=== PATIENT | male | born 1970 | race Caucasian/White ===

== ENCOUNTER 2017-06-19 15:18 | Inpatient (IN) | payer OTHER ==
[~2017-06-19] VITALS: Ht 172.7 cm; Wt 78.3 kg
[2017-06-19 19:35] VITALS: BP 144/91; PULSE 95; RESP 16; TEMP 98.1; O2SAT 98
[2017-06-19] MEDS ORDERED: MAGNESIUM HYDROXIDE SUSP 30 ML CUP PO PRN (21:15)
[2017-06-19] MEDS ORDERED: LORazepam 2 MG/ML VIAL IM PRN (21:15)
[2017-06-19] MEDS ORDERED: LORazepam 1 MG TAB PO PRN (21:15)
[2017-06-19] MEDS ORDERED: ACETAMINOPHEN 325 MG TAB PO PRN (21:15)
[2017-06-19] MEDS ORDERED: ALUMINUM/MAGNESIUM/SIMETH 30 ML CUP PO PRN (21:15)
[2017-06-19] MEDS ORDERED: FLUO1TAB3 PO (22:42)
[2017-06-19] MEDS ORDERED: BUSP5TAB PO (22:42)
[2017-06-20 05:43] VITALS: BP 136/90; PULSE 86; RESP 17; TEMP 98.2; O2SAT 97
[2017-06-20] MEDS: NICOTINE 21 MG/24 HR PATCH T-DERMAL SCH (09:00)
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
[2017-06-20] MEDS ORDERED: FLUMAZENIL 0.5 MG/5 ML VIAL IV PUSH PRN (11:15)
[2017-06-20] MEDS ORDERED: LORazepam 2 MG/ML VIAL IV PUSH PRN ×4 (11:15)
[2017-06-20] MEDS ORDERED: LORazepam 2 MG TAB PO PRN (11:15)
[2017-06-20] MEDS: THIAMINE HCL 100 MG TAB PO SCH (12:26)
[2017-06-20] MEDS: FOLIC ACID 1 MG TAB PO SCH (12:26)
[2017-06-20 15:35] VITALS: BP 142/87
[2017-06-20] MEDS: LORazepam 1 MG TAB PO PRN (15:35)
[2017-06-20 16:16] VITALS: BP 142/87; PULSE 98; RESP 18; TEMP 98.2; O2SAT 96
[2017-06-20] MEDS: REMOVE OLD NICOTINE PATCH T-DERMAL SCH (21:00)
[2017-06-20] MEDS ORDERED: QUEtiapine FUMARATE 25 MG TAB PO SCH (21:00)
--- NOTE | 2017-06-20 21:36 | EKG ---
Date Performed: 06/20/2017 Time Performed: 17:11:16 PTAGE: 46 years EKG: SINUS TACHYCARDIA INCOMPLETE RIGHT BUNDLE BRANCH BLOCK ABNORMAL RHYTHM ECG NO PREVIOUS TRACING DOCTOR: Serina Pandey Interpretating Date/Time 06/20/2017 21:35:24
[2017-06-21 05:35] VITALS: BP 133/85; PULSE 98; RESP 18; TEMP 97.6; O2SAT 96
[2017-06-21 06:10] VITALS: BP 133/85; PULSE 98; RESP 18; TEMP 97.6; O2SAT 96
[2017-06-21] MEDS: THIAMINE HCL 100 MG TAB PO SCH (08:42)
[2017-06-21] MEDS: FOLIC ACID 1 MG TAB PO SCH (08:42)
[2017-06-21] MEDS: NICOTINE 21 MG/24 HR PATCH T-DERMAL SCH (08:42)
[2017-06-21 11:03] LABS: BICARBONATE 26.1 MEQ/L (21.0-32.0); BLOOD UREA NITROGEN 13 MG/DL (7-18); CALCIUM 8.5 MG/DL (8.5-10.1); CHLORIDE 102 MEQ/L (98-107); CHOLESTEROL 146 MG/DL (120-200); CREATININE 1.08 MG/DL (0.60-1.30); GLOMERULAR FILTRATION RATE 74 ML/MIN (>89); GLUCOSE,RANDOM 224 MG/DL (74-106); SODIUM (NA) 140 MEQ/L (136-145)
[2017-06-21 11:13] LABS: CHOLESTEROL/ HDL RATIO 1.88 RATIO; HDL CHOLESTEROL 77.6 MG/DL (40.0-60.0); LDL CHOLESTEROL 53 MG/DL (0-99); TRIGLYCERIDES 78 MG/DL (42-150)
--- NOTE | 2017-06-21 12:02 | HHI.PYPN ---
Subjective Chief Complaint: Depression Remarks Patient seen and examined with nurse. Chart reviewed. Patient has received 1 mg of Ativan in last 24 hours. Case discussed with nursing staff. On my examination today, dramatic, cluster B personality traits more evident as they had been with nursing staff yesterday. Patient endorses ongoing low mood. Ongoing anxiety, particularly surrounding socializing. Slept well overnight with Seroquel. Denies active suicidal ideation. Denies side effects from medications. No physical complaints. Agreeable to titration of Seroquel. Review of Systems Except as stated in HPI: all other systems reviewed are Neg Mental Status Examination Appearance: Appropriate Consciousness: Alert Orientation: x4 Motor Activity: Other (mild resting tremor, no diaphoresis, no mydriasis, no tongue fasciculations. No other motoric abnormalities noted.) Speech: Unremarkable Language: Adequate Fund of Knowledge: Adequate Attention and Concentration: Adequate Memory: Unremarkable Mood: Other (depressed) Affect: Other (blunted, tearful at times) Thought Process & Associations: Intact Thought Content: Appropriate Hallucination Type: None Delusion Type: None Suicidal Ideation: No Suicidal Plan: No Suicidal Intention: No Homicidal Ideation: No Homicidal Plan: No Homicidal Intention: No Insight: Fair Judgment: Impulsive Results Labs Test 06/21/17 08:50 Blood Urea Nitrogen 13 MG/DL Creatinine 1.08 MG/DL Random Glucose 224 MG/DL Calcium Level 8.5 MG/DL Sodium Level 140 MEQ/L Potassium Level 3.6 MEQ/L Chloride Level 102 MEQ/L Carbon Dioxide Level 26.1 MEQ/L Anion Gap 12 MEQ/L Estimat Glomerular Filtration Rate 74 ML/MIN Triglycerides Level 78 MG/DL Cholesterol Level 146 MG/DL LDL Cholesterol 53 MG/DL HDL Cholesterol 77.6 MG/DL Cholesterol/HDL Ratio 1.88 RATIO Thyroid Stimulating Hormone 3rd Gen 0.886 uIU/ML Labs reviewed. TSH within normal limits. Hyperglycemia noted inpatient without known history of diabetes. Hemoglobin A1c presently pending. EKG reviewed. QTC within normal limits. Vitals/IOs Vital Signs Date Time Temp Pulse Resp B/P (MAP) Pulse Ox O2 Delivery O2 Flow Rate FiO2 06/21/17 06:10 97.6 98 18 133/85 (101) 96 Assessment & Plan Problem List: (1) Severe depressed bipolar II disorder without psychotic features ICD Codes: F31.81 - Bipolar II disorder (2) Alcohol dependence ICD Codes: F10.20 - Alcohol dependence, uncomplicated Assessment & Plan Titrate Seroquel to 100 mg at bedtime for mood stabilization. Continue CIWA scale and Ativan for the management of any withdrawal. Follow-up hemoglobin A1c and check fasting morning Accu-Cheks. Continue to monitor on the inpatient unit. Continue other medications and care as ordered. Support provided. Justification for Cont. Inpt. Med changes. Risk for decompensation in less restrictive environment. Discharge Planning Pending psychiatric stabilization. ELOS unchanged. Request HC Surrog/Guard Advoc?: No Problem Qualifiers (1) Alcohol dependence: Qualified Codes: F10.20 - Alcohol dependence, uncomplicated Kyle Negro MD Jun 21, 2017 12:02
[2017-06-21] MEDS: cloNIDine HCL 0.1 MG TAB PO PRN (17:23)
[2017-06-21 18:10] VITALS: BP 152/102; PULSE 101; RESP 20; TEMP 98.6; O2SAT 98
[2017-06-21 18:48] VITALS: BP 130/90
[2017-06-21] MEDS: LORazepam 1 MG TAB PO PRN (20:26)
[2017-06-21] MEDS: REMOVE OLD NICOTINE PATCH T-DERMAL SCH (20:27)
[2017-06-21] MEDS ORDERED: QUEtiapine FUMARATE 25 MG TAB PO SCH (21:00)
[2017-06-22 05:25] VITALS: BP 130/77; PULSE 80; RESP 18; TEMP 97.6; O2SAT 99
[2017-06-22] MEDS: NICOTINE 21 MG/24 HR PATCH T-DERMAL SCH (08:43)
[2017-06-22] MEDS: FOLIC ACID 1 MG TAB PO SCH (08:43)
[2017-06-22] MEDS: THIAMINE HCL 100 MG TAB PO SCH (08:43)
--- NOTE | 2017-06-22 11:27 | HHI.PYPN ---
Subjective Chief Complaint: Depression Remarks Patient seen and examined with nurse. Chart reviewed. Case discussed with nursing staff. No behavioral issues noted. On my examination today, the patient feels like his medications are starting to work. Mood is slowly improving. Sleep somewhat difficult last night. Denies suicidal or homicidal ideation. Remains a little anxious in social situations. Cluster B personality traits persist. Denies side effects from medications. No physical complaints. Agreeable to further titration of Seroquel. Review of Systems Except as stated in HPI: all other systems reviewed are Neg Mental Status Examination Appearance: Appropriate Consciousness: Alert Orientation: x4 Motor Activity: Other (no motor abnormalities noted. No withdrawal signs noted.) Speech: Unremarkable Language: Adequate Fund of Knowledge: Adequate Attention and Concentration: Adequate Memory: Unremarkable Mood: Other (improving) Affect: Other (fairly full and reactive) Thought Process & Associations: Intact Thought Content: Appropriate Hallucination Type: None Delusion Type: None Suicidal Ideation: No Suicidal Plan: No Suicidal Intention: No Homicidal Ideation: No Homicidal Plan: No Homicidal Intention: No Insight: Adequate Judgment: Adequate Results Labs Labs reviewed. No new labs. Vitals/IOs Vital Signs Date Time Temp Pulse Resp B/P (MAP) Pulse Ox O2 Delivery O2 Flow Rate FiO2 06/22/17 05:25 97.6 80 18 130/77 (94) 99 Assessment & Plan Problem List: (1) Severe depressed bipolar II disorder without psychotic features ICD Codes: F31.81 - Bipolar II disorder (2) Alcohol dependence ICD Codes: F10.20 - Alcohol dependence, uncomplicated Assessment & Plan Titrate Seroquel to 150 mg at bedtime for additional mood stabilization. Continue CIWA scale for an additional day; if there is no evidence of clinically significant withdrawal, will likely discontinue tomorrow. Continue to monitor on the inpatient unit. Encouraged participation in groups and unit activities. Continue other medications and care as ordered. Justification for Cont. Inpt. Med changes. Discharge Planning Anticipate discharge no later than Monday. Left voice mail for the counselor to discuss the patient's case Request HC Surrog/Guard Advoc?: No Problem Qualifiers (1) Alcohol dependence: Qualified Codes: F10.20 - Alcohol dependence, uncomplicated Kyle Negro MD Jun 22, 2017 11:27
[2017-06-22] MEDS ORDERED: PILL SPLITTER OTHER PRN (11:45)
[2017-06-22 17:53] VITALS: BP 159/107; PULSE 93; RESP 17; TEMP 97.2; O2SAT 97
[2017-06-22] MEDS: REMOVE OLD NICOTINE PATCH T-DERMAL SCH (20:58)
[2017-06-22] MEDS: hydrOXYzine HCL 50 MG TAB PO PRN (20:58)
[2017-06-22] MEDS ORDERED: QUEtiapine FUMARATE 100 MG TAB PO SCH (21:00)
[2017-06-22] MEDS: LORazepam 1 MG TAB PO PRN (22:39)
[2017-06-23 05:35] VITALS: BP 148/99; PULSE 79; RESP 18; TEMP 97.7; O2SAT 98
[2017-06-23] MEDS: THIAMINE HCL 100 MG TAB PO SCH (08:28)
[2017-06-23] MEDS: FOLIC ACID 1 MG TAB PO SCH (08:28)
[2017-06-23] MEDS: NICOTINE 21 MG/24 HR PATCH T-DERMAL SCH (08:29)
[2017-06-23 08:58] VITALS: BP 137/97; PULSE 100
--- NOTE | 2017-06-23 11:35 | HHI.PYPN ---
Subjective Chief Complaint: Depression Remarks Patient seen and examined with nurse. Chart reviewed. CIWA max in last 24 hours was 12. Case discussed with nursing staff who reports the patient continues to complain of somewhat poor sleep. On my examination today, the patient feels that he is improving with Seroquel. He says that he is beginning to feel "bits of hope." No SI or HI. Does complain of poor sleep overnight, and says this was partially due to restlessness in his legs, chiefly the left, and he notes he has had this problem in the past. Denies side effects from medications. No physical complaints. Agreeable to further titration of Seroquel. Review of Systems Except as stated in HPI: all other systems reviewed are Neg Mental Status Examination Appearance: Appropriate Consciousness: Alert Orientation: x4 Motor Activity: Other (no hand tremor, no dystonia, no dyskinesia, no other motor abnormalities noted.) Speech: Unremarkable Language: Adequate Fund of Knowledge: Adequate Attention and Concentration: Adequate Memory: Unremarkable Mood: Other (mood continues to improve) Affect: Appropriate (full and reactive) Thought Process & Associations: Intact Thought Content: Appropriate Hallucination Type: None Delusion Type: None Suicidal Ideation: No Suicidal Plan: No Suicidal Intention: No Homicidal Ideation: No Homicidal Plan: No Homicidal Intention: No Insight: Adequate Judgment: Adequate Mental Status Exam Remarks No signs of GABAergic withdrawal noted Results Labs Labs reviewed. Accu-Cheks within acceptable parameters. Hemoglobin A1c within normal limits. Vitals/IOs Vital Signs Date Time Temp Pulse Resp B/P (MAP) Pulse Ox O2 Delivery O2 Flow Rate FiO2 06/23/17 08:58 100 137/97 (110) 06/23/17 05:35 97.7 18 98 Intake and Output 06/23/17 06/23/17 06/24/17 08:00 16:00 00:00 Intake Total 240 ml Balance 240 ml Assessment & Plan Problem List: (1) Severe depressed bipolar II disorder without psychotic features ICD Codes: F31.81 - Bipolar II disorder (2) Alcohol dependence ICD Codes: F10.20 - Alcohol dependence, uncomplicated Assessment & Plan Continue Seroquel titration through the weekend to a target dose of 300 mg at bedtime for mood stabilization. Continue CIWA scale for one more day given CIWA max noted above; to consider discontinuation tomorrow. Discontinue Accu- Cheks as hemoglobin A1c was within normal limits. I have reminded the patient of the possible metabolic effects of Seroquel and recommended close follow-up with his primary care doctor as he does report a family history of diabetes in his sister. Continue to monitor on the inpatient unit. Continue other medications and care as ordered. Justification for Cont. Inpt. Med changes Discharge Planning Anticipate discharge Monday. I have asked the counselor to meet with the patient regarding final discharge planning. Request HC Surrog/Guard Advoc?: No Problem Qualifiers (1) Alcohol dependence: Qualified Codes: F10.20 - Alcohol dependence, uncomplicated Kyle Negro MD Jun 23, 2017 11:35
[2017-06-23] MEDS: hydrOXYzine HCL 50 MG TAB PO PRN (16:18)
[2017-06-23] MEDS: cloNIDine HCL 0.1 MG TAB PO PRN (17:27)
[2017-06-23] MEDS: LORazepam 1 MG TAB PO PRN (17:27)
[2017-06-23 17:44] VITALS: BP 160/90; PULSE 102; RESP 18; TEMP 98.5; O2SAT 98
[2017-06-23] MEDS: REMOVE OLD NICOTINE PATCH T-DERMAL SCH (21:00)
[2017-06-23] MEDS: QUEtiapine FUMARATE 100 MG TAB PO SCH (21:48)
[2017-06-24 06:01] VITALS: BP 127/82; PULSE 71; RESP 16; TEMP 97.9; O2SAT 98
[2017-06-24] MEDS: NICOTINE 21 MG/24 HR PATCH T-DERMAL SCH (09:25)
[2017-06-24] MEDS: FOLIC ACID 1 MG TAB PO SCH (09:25)
[2017-06-24] MEDS: THIAMINE HCL 100 MG TAB PO SCH (09:25)
--- NOTE | 2017-06-24 16:03 | HHI.PYPN ---
Subjective Chief Complaint: Depression Remarks Patient was seen and case discussed with nursing. Patient CIWA is 0. And we will withdraw the scale per the recommendation of , patient is pleasant and cooperative with exam. Mood is improving. He denies suicidal or homicidal ideation intent or plan. Patient went to AA group and psychotherapy group Mental Status Examination Appearance: Appropriate Consciousness: Alert Orientation: x4 Motor Activity: Other (no hand tremor, no dystonia, no dyskinesia, no other motor abnormalities noted.) Speech: Unremarkable Language: Adequate Fund of Knowledge: Adequate Attention and Concentration: Adequate Memory: Unremarkable Mood: Other (mood continues to improve) Affect: Appropriate (full and reactive) Thought Process & Associations: Intact Thought Content: Appropriate Hallucination Type: None Delusion Type: None Suicidal Ideation: No Suicidal Plan: No Suicidal Intention: No Homicidal Ideation: No Homicidal Plan: No Homicidal Intention: No Insight: Adequate Judgment: Adequate Results Vitals/IOs Vital Signs Date Time Temp Pulse Resp B/P (MAP) Pulse Ox O2 Delivery O2 Flow Rate FiO2 06/24/17 06:01 97.9 71 16 127/82 (97) 98 Assessment & Plan Problem List: (1) Severe depressed bipolar II disorder without psychotic features ICD Codes: F31.81 - Bipolar II disorder (2) Alcohol dependence ICD Codes: F10.20 - Alcohol dependence, uncomplicated Assessment & Plan Continue current treatment plan, discontinue CIWA Justification for Cont. Inpt. Patient would decompensate in a less restrictive setting Request HC Surrog/Guard Advoc?: No Problem Qualifiers (1) Alcohol dependence: Qualified Codes: F10.20 - Alcohol dependence, uncomplicated Geraldo Del Toro DO Jun 24, 2017 16:03
[2017-06-24] MEDS: cloNIDine HCL 0.1 MG TAB PO PRN (16:56)
[2017-06-24 17:43] VITALS: BP 165/110; PULSE 118; RESP 18; O2SAT 98
[2017-06-24] MEDS: QUEtiapine FUMARATE 100 MG TAB PO SCH (20:37)
[2017-06-24] MEDS: REMOVE OLD NICOTINE PATCH T-DERMAL SCH (20:38)
[2017-06-25 05:32] VITALS: BP 138/88; PULSE 87; RESP 17; TEMP 97.9; O2SAT 97
[2017-06-25] MEDS: THIAMINE HCL 100 MG TAB PO SCH (09:24)
[2017-06-25] MEDS: NICOTINE 21 MG/24 HR PATCH T-DERMAL SCH (09:24)
[2017-06-25] MEDS: REMOVE OLD NICOTINE PATCH T-DERMAL SCH (09:24)
[2017-06-25] MEDS: FOLIC ACID 1 MG TAB PO SCH (09:24)
--- NOTE | 2017-06-25 14:52 | HHI.PYPN ---
Subjective Chief Complaint: Depression Remarks Patient was seen and case discussed with nursing. Patient is pleasant and cooperative with exam. Insight continues to improve. He has an elaborate postdischarge life plan. He is eating and sleeping well. Tolerating his medications well. Compliant with medications Mental Status Examination Appearance: Appropriate Consciousness: Alert Orientation: x4 Motor Activity: Other (no hand tremor, no dystonia, no dyskinesia, no other motor abnormalities noted.) Speech: Unremarkable Language: Adequate Fund of Knowledge: Adequate Attention and Concentration: Adequate Memory: Unremarkable Mood: Other (mood continues to improve) Affect: Appropriate (full and reactive) Thought Process & Associations: Intact Thought Content: Appropriate Hallucination Type: None Delusion Type: None Suicidal Ideation: No Suicidal Plan: No Suicidal Intention: No Homicidal Ideation: No Homicidal Plan: No Homicidal Intention: No Insight: Adequate Judgment: Adequate Results Vitals/IOs Vital Signs Date Time Temp Pulse Resp B/P (MAP) Pulse Ox O2 Delivery O2 Flow Rate FiO2 06/25/17 05:32 97.9 87 17 138/88 (105) 97 Assessment & Plan Problem List: (1) Severe depressed bipolar II disorder without psychotic features ICD Codes: F31.81 - Bipolar II disorder (2) Alcohol dependence ICD Codes: F10.20 - Alcohol dependence, uncomplicated Assessment & Plan Continue current treatment plan Justification for Cont. Inpt. Patient would decompensate in a less restrictive setting Request HC Surrog/Guard Advoc?: No Problem Qualifiers (1) Alcohol dependence: Qualified Codes: F10.20 - Alcohol dependence, uncomplicated Geraldo Del Toro DO Jun 25, 2017 14:52
[2017-06-25 16:45] VITALS: BP 156/89; PULSE 90; RESP 18; TEMP 98.4; O2SAT 99
[2017-06-25] MEDS: QUEtiapine FUMARATE 100 MG TAB PO SCH (20:11)
[2017-06-26 05:57] VITALS: BP 117/62; PULSE 79; RESP 16; TEMP 97.8; O2SAT 97
[2017-06-26] MEDS: THIAMINE HCL 100 MG TAB PO SCH (08:37)
[2017-06-26] MEDS: NICOTINE 21 MG/24 HR PATCH T-DERMAL SCH (08:37)
[2017-06-26] MEDS: FOLIC ACID 1 MG TAB PO SCH (08:37)
[2017-06-26] MEDS ORDERED: FOLI1TAB6 PO (11:17)
[2017-06-26] MEDS ORDERED: QUET1TAB8 PO (11:17)
[2017-06-26] MEDS ORDERED: GNP100TA3 PO (11:17)
--- NOTE | 2017-06-26 11:17 | HHI.DS ---
Psychiatry Discharge Summary Inpatient Psychiatric care?: Yes Advance Directive: No Reason Not Provided: declined Mental Health AdvanceDirective: No Health Care Proxy: No Admission Admission Date Jun 19, 2017 at 18:50 Admission Diagnosis: (1) Severe depressed bipolar II disorder without psychotic features ICD Code: F31.81 - Bipolar II disorder (2) Alcohol dependence ICD Code: F10.20 - Alcohol dependence, uncomplicated Brief History Mr. Mosley is a 46-year-old male with a reported history of anxiety who presents in transfer from [facility] under a Cormier act with depression and suicidal ideation. Records from outside hospital reviewed. Reviewing the electronic medical record, it appears this is patient's first visit to [place]. Patient seen and examined. Chart reviewed. Case discussed with nursing staff. On my examination today, the patient describes an episodic psychiatric illness beginning in the early when he was in the [place]. He notes that this was the first time that he was in a structured work environment. He describes a pattern of increased responsibility and success that is completely undone by a [id number] long episode of irresponsible behavior and increased alcohol use. He emphasizes that the alcohol use follows and does not precede the behavioral disturbance. He notes that this cycle has repeated several times. He has been on the downward end of the cycle over the last several weeks, noting decreased sleep, sexual indiscretions, and impulsive spending. He also has been drinking more heavily. He became despondent about the state of his life as a consequence of his behavior about 2 weeks ago and made an overdose on Excedrin and alcohol. He did not seek help at the time and is upset to have survived. Presently, he is tearful and depressed. Sleep is poor. He is hopeless and anhedonic. He endorses ongoing SI with thoughts of driving his car off of an overpass or perhaps laying on the railroad tracks. He denies any urge to hurt himself on the inpatient psychiatric unit. He denies any homicidal ideation. He also describes a history of anxiety, chiefly panicky in nature, beginning in about 2007 or 2008. He says that this panicky anxiety is present regardless of his mood state, although the mood issues are presently more disabling. Denies any AVH. No delusional material. The remainder of the psychiatric ROS is negative. Past psychiatric history: The patient reports a history of anxiety. He is not currently under the care of a psychiatrist nor is he taking any psychotropic medications. He denies any history of psychiatric admissions. Besides the recent attempt at self-harm noted above, he denies any previous history of suicide attempts. Tobacco Use In Past 30 Days: 5 or More Cigarettes/Day Alcohol Use: 2-3 Times Per Week Hospital Course Patient was admitted to a locked, inpatient psychiatric unit. Appropriate precautions were in place throughout patient's hospital stay. Patient was seen and examined daily on the unit by psychiatry and also visited by counselor. Psychotropic medications were adjusted. Patient tolerated medications well without side effects. Patient had improvement in presenting psychiatric symptomatology. There was no evidence of any suicidality or homicidality on the inpatient unit. Patient remained in good behavioral control on the unit was medication compliant. He was attending to his basic needs on the unit. On the day of discharge: Patient seen and examined with nurse. Chart reviewed. Case discussed with nursing staff. The patient has been no behavioral problem on the unit and is noted to be more visible on the unit now versus earlier in the hospital stay. On my examination today, the patient reports that he feels much improved and ready for discharge. He denies any suicidal or homicidal ideation, intent or plan on direct questioning and contracts for safety. He says that he has appreciated the increased family support he has received since coming into the hospital. Mood is improved, and I can elicit no ongoing depressive or hypomanic/manic symptoms. No audiovisual hallucinations, and I can elicit no delusional beliefs. He does continue to display some cluster B personality traits. He denies side effects from medications. No physical complaints. His plan is to stay with a friend and pursue entry into a sober living facility, noting that he already has intake appointments at these facilities scheduled for tomorrow. Weighing the acute, chronic, and protective factors and based on the available evidence, I case coordinator to a reasonable degree of medical certainty that the patient is at low imminent risk of harm to self or others from a mental illness as defined under the Cormier act and his level of function is adequate for outpatient care. The patient has maximized benefit from this inpatient psychiatric hospital stay and will be discharged today with psychiatric follow-up as arranged by counselor. Patient is also to follow-up with primary care. I have supported the patient and his desire for abstinence from substance abuse. I have counseled the patient regarding warning signs for need to return to the psychiatric emergency room as part of the general safety plan. Results Blood Pressure 117 / 62 Vital Signs Date Time Temp Pulse Resp B/P (MAP) Pulse Ox O2 Delivery O2 Flow Rate FiO2 06/26/17 05:57 97.8 79 16 117/62 (80) 97 Laboratory Results Test 06/21/17 08:50 Cholesterol Level 146 MG/DL (120-200) HDL Cholesterol 77.6 MG/DL (40.0-60.0) Hemoglobin A1c 6.0 % (4.3-6.0) LDL Cholesterol 53 MG/DL (0-99) Triglycerides Level 78 MG/DL (42-150) Summary of Procedures None done Imaging None done Pending results at discharge: No Medications # of Antipsychotic meds at D/C: 1 Approp Antipsych med options 1 - Minimum of three failed multiple trials of monotherapy. 2 - Documented plan to taper to monotherapy due to previous use of multiple meds OR cross-taper in progress at D/C. 3 - Documentation of augmentation of Clozapine. 4 - Justification other than those listed in allowable values 1-3, document here : Discharge Discharge Date: Jun 26, 2017 Discharge Diagnosis: (1) Bipolar affective disorder, depressed in partial remission Diagnosis: Principal ICD Code: F31.75 - Bipolar disorder, in partial remission, most recent episode depressed (2) Alcohol dependence Diagnosis: Secondary (counseled to quit) ICD Code: F10.20 - Alcohol dependence, uncomplicated (3) Cluster B personality traits Diagnosis: Secondary Pt Condition on Discharge: Stable Discharge Disposition: Discharge Home Discharge Instructions Diet Instructions: As Tolerated, No Restrictions Activities you can perform: Weight Bearing as [place] Scheduled Appointment: as per counselor's notes New Medications: Folic Acid (Folic Acid) 1 Mg Tablet 1 MG PO DAILY for Nutritional Supplement for 15 Days, #15 TAB 1 Refill Quetiapine (Quetiapine) 100 Mg Tab 300 MG PO HS for Mental Health for 15 Days, TAB 1 Refill Thiamine HCl (Gnp Vitamin B-1) 100 Mg Tab 100 MG PO DAILY for Nutritional Supplement for 15 Days, #15 TAB 1 Refill Discontinued Medications: Buspirone (Buspirone) 5 Mg Tab 5 MG PO TID for Anxiety, TAB 0 Refills Fluoxetine (Fluoxetine) 20 Mg Tab 20 MG PO HS, #30 TAB 0 Refills Discharge Time <= 30 minutes Mental Status Examination Appearance: Appropriate Consciousness: Alert Orientation: x4 Motor Activity: Normal gait, Other (no motor abnormalities noted. No signs of withdrawal noted.) Speech: Unremarkable Language: Adequate Fund of Knowledge: Adequate Attention and Concentration: Adequate Memory: Unremarkable Mood: Appropriate (much improved versus admission) Affect: Appropriate (full and reactive) Thought Process & Associations: Intact, Logical, Goal directed, Linear Thought Content: Appropriate Hallucination Type: None Delusion Type: None Suicidal Ideation: No Suicidal Plan: No Suicidal Intention: No Homicidal Ideation: No Homicidal Plan: No Homicidal Intention: No Insight: Adequate Judgment: Adequate Discharge/Advance Care Plan Health Problems: (1) Severe depressed bipolar II disorder without psychotic features (2) Alcohol dependence Goals to promote your health * To prevent worsening of your condition and complications * To maintain your health at the optimal level Directions to meet your goals Take your medications as prescribed Follow your dietary instruction Follow activity as directed Keep your appointments as scheduled Take your immunizations and boosters as scheduled If your symptoms worsen call your PCP, if no PCP go to Urgent Care Center or Emergency Room For 20/03 questions related to your inpatient stay or results of tests pending at discharge, please contact Dr. Kyle Negro at Smoking is Dangerous to Your Health. Avoid second hand smoking Problem Qualifiers (1) Alcohol dependence: Qualified Codes: F10.20 - Alcohol dependence, uncomplicated Kyle Negro MD Jun 26, 2017 11:17
--- NOTE | 2017-06-26 11:39 | PD.TTN ---
Patient Problems 1. Discharge planning 2. Medication compliance 3. Knowledge deficit 4. Lack of coping skills Progress Toward Goals Provider Present: Dr. Jackelin Negro Provider Input: Dr. Negro's treatment team met to discuss treatment plan, medication, and discharge. Patient is doing better.Medication compliant. Discharge with psychiatric follow up. Nurse(s) Input: Patient's nurse Joyce reports patient doing well, medication complaint. Psychiatric Counselors Present: [facility] Input: Patient seen today. Patient presents calm, cooperative, affect appropriate. Patient is being discharged to self. Patient denies any suicidal or homicidal ideation, or any delusional content. Patient's speech is clear, and organized. Patient has been set with an [facility] appointment along with [facility]'s Security Control Assessor Akilah for additional services. Group Spec/RT/OT/العلي Present: OZHRA Salguero Group Spec/RT/OT/العلي Input: Patient is depressed, patient attends some groups wants help for substance abuse issues. [facility] Jun 26, 2017 11:39
--- NOTE | 2017-06-26 11:39 | PD.TTN ---
Patient Problems 1. Discharge planning 2. Medication compliance 3. Knowledge deficit 4. Lack of coping skills Progress Toward Goals Provider Present: Dr. Jackelin Negro Provider Input: Dr. Negro's treatment team met to discuss treatment plan, medication, and discharge. Patient is doing better.Medication compliant. Discharge with psychiatric follow up. Nurse(s) Input: Patient's nurse Joyce reports patient doing well, medication complaint. Psychiatric Counselors Present: [facility] Input: Patient seen today. Patient presents calm, cooperative, affect appropriate. Patient is being discharged to self. Patient denies any suicidal or homicidal ideation, or any delusional content. Patient's speech is clear, and organized. Patient has been set with an [facility] appointment along with [facility]'s River Captain Akilah for additional services. Group Spec/RT/OT/العلي Present: ZOHRA Salguero Group Spec/RT/OT/العلي Input: Patient is depressed, patient attends some groups wants help for substance abuse issues. [facility] Jun 26, 2017 11:39
--- NOTE | 2017-06-26 11:39 | PD.TTN ---
Patient Problems 1. Discharge planning 2. Medication compliance 3. Knowledge deficit 4. Lack of coping skills Progress Toward Goals Provider Present: Dr. Jackelin Negro Provider Input: Dr. Negro's treatment team met to discuss treatment plan, medication, and discharge. Patient is doing better.Medication compliant. Discharge with psychiatric follow up. Nurse(s) Input: Patient's nurse Joyce reports patient doing well, medication complaint. Psychiatric Counselors Present: [facility] Input: Patient seen today. Patient presents calm, cooperative, affect appropriate. Patient is being discharged to self. Patient denies any suicidal or homicidal ideation, or any delusional content. Patient's speech is clear, and organized. Patient has been set with an [facility] appointment along with [facility]'s Insurance Verification Clerk Akilah for additional services. Group Spec/RT/OT/العلي Present: ZOHRA Salguero Group Spec/RT/OT/العلي Input: Patient is depressed, patient attends some groups wants help for substance abuse issues. [facility] Jun 26, 2017 11:39
== END 2017-06-26 18:00 | disposition home or self-care (01) | DRG 885 ==
LOC: H260 18:50
PROVIDERS: ADMIT Psychiatry & Neurology Psychiatry; ATTEND Psychiatry & Neurology Psychiatry
DX: F31.75 Bipolar disorder, in partial remission, most recent episode depressed (principal); F60.89 Other specific personality disorders; F10.20 Alcohol dependence, uncomplicated; Z59.0 Homelessness; Z81.1 Family history of alcohol abuse and dependence
CPT/HCPCS: 80048; 80061; 82948; 83036; 84443; 93005